=== PATIENT | female | born 1985 | race Caucasian/White ===

== ENCOUNTER 2019-03-08 15:13 | Inpatient (IN) | payer OTHER ==
[~2019-03-08] VITALS: Ht 157.5 cm; Wt 80.7 kg
[~2019-03-08 15:13] MED LIST: LIDOCAINE PF 1% 30ML(POUR BTL) INJ ONE; LIDOCAINE/EPI MPF 2%1:200000 10 ML VIAL INJ ONE; MINERAL OIL 30 ML UDC PO ONE
[2019-03-08 16:04] LABS: BASOPHILS % (AUTO) 0.4 % (0.0-2.0); EOSINOPHILS # (AUTO) 0.3 K/uL (0.0-0.4); EOSINOPHILS % (AUTO) 3.2 % (0.0-4.0); HEMATOCRIT 40.3 % (36-48); HEMOGLOBIN 13.8 g/dL (12.0-16.0); LYMPHOCYTES # (AUTO) 2.2 K/uL (1.0-5.5); LYMPHOCYTES % (AUTO) 22.3 % (20.5-51.5); MEAN CORPUSCULAR HEMOGLOBIN 30 pg (27-31); MEAN CORPUSCULAR HGB CONC 34 % (32-36); MEAN CORPUSCULAR VOLUME 87 fL (79.0-98.0); MONOCYTES # (AUTO) 0.6 K/uL (0.0-1.0); NEUTROPHILS # (AUTO) 6.8 K/uL (1.8-7.7); NEUTROPHILS % (AUTO) 68.1 % (40.0-70.0); PLATELET COUNT (AUTO) 213 K/uL (130-430); RED BLOOD CELL COUNT(AUTO) 4.61 MIL/uL (4.2-6.2); RED CELL DISTRIBUTION WIDTH 14.4 % (9.0-15.0); WHITE BLOOD COUNT (AUTO) 10.1 K/uL (4.8-10.8)
[2019-03-08] MEDS ORDERED: LR 1,000 ML IV ONE (16:07)
[2019-03-08] MEDS ORDERED: LR 1,000 ML IV SCH (16:07)
[2019-03-08] MEDS ORDERED: OXYTOCIN/0.9 % SODIUM CHLORIDE 1,000 ML IV SCH ×2 (16:07→22:07)
[2019-03-08] MEDS ORDERED: TERBUTALINE SULFATE 1 MG/ML VIAL SUBCUT ONE (16:15)
[2019-03-08] MEDS ORDERED: fentaNYL CITRATE/PF 100 MCG/2 ML AMP ONE (17:18)
[2019-03-08] MEDS ORDERED: ROPIVACAINE HCL/PF 0.2% 200 ML ONE (17:18)
[2019-03-08] MEDS ORDERED: LR 500 ML IV ONE (17:50)
[2019-03-08] MEDS ORDERED: FENT2mCg/mL-ROPIVA0.2%/NS EPID 200 ML EP SCH (18:00)
[2019-03-08] MEDS: NALBUPHINE HCL 10 MG/ML AMP IVP PRN ×2 (18:22→21:05)
[2019-03-08] MEDS ORDERED: TEMAZEPAM 15 MG CAPSULE PO PRN (21:00)
[2019-03-08] MEDS ORDERED: METHYLERGONOVINE MALEATE 0.2 MG/ML AMP ONE (22:06)
[2019-03-08] MEDS ORDERED: OXYTOCIN/0.9 % SODIUM CHLORIDE 1,000 ML IV ONE (22:07)
[2019-03-08] MEDS ORDERED: WITCH HAZEL LEAF 1 MED.PAD MED.PAD TP PRN (22:15)
[2019-03-08] MEDS ORDERED: HYDROcodone/ACETAMIN 5-325 MG TAB (NORCO/ VICODIN) PO PRN (22:15)
[2019-03-08] MEDS ORDERED: RHO(D) IMMUNE GLOBULIN/MALTOSE 1500 UNITS/1.3 ML (WINHRO) IM PRN (22:15)
[2019-03-08] MEDS ORDERED: LANOLIN 7 GM OINT. TP PRN (22:15)
[2019-03-08] MEDS ORDERED: OXYCODONE/ACETAMINOPHEN 5-325 TABLET PO PRN ×2 (22:15)
[2019-03-08] MEDS ORDERED: DIPH-TET-PERTUS Vaccine 0.5 ML VIAL (ADACEL) I.M. PRN (22:15)
[2019-03-08] MEDS ORDERED: HYDROCORTISONE 0.5%, 28.35 GM TOPICAL CREAM TP PRN (22:15)
[2019-03-08] MEDS ORDERED: DERMOPLAST SPRAY TP PRN (22:15)
[2019-03-08] MEDS ORDERED: ANUSOL 1 EA SUPP.RECT (PREPARATION H) RC PRN (22:15)
[2019-03-08] MEDS ORDERED: SENNOSIDES/DOCUSATE SODIUM 1 TAB TABLET(SENOKOT-S) PO PRN (22:15)
[2019-03-08] MEDS ORDERED: MEASLES,MUMPS&RUBELLA VACC/PF 12500 UNIT/0.5 ML VIAL SUBQ PRN (22:15)
[2019-03-08] MEDS ORDERED: DOCUSATE SODIUM 100 MG CAPSULE PO PRN (22:15)
[2019-03-09] MEDS: IBUPROFEN 600 MG TABLET PO SCH ×4 (02:31→21:49)
[2019-03-09 07:34] VITALS: BP_SYST 136
[2019-03-09 09:04] LABS: BASOPHILS # (AUTO) 0.1 K/uL (0.0-0.2); BASOPHILS % (AUTO) 0.5 % (0.0-2.0); EOSINOPHILS # (AUTO) 0.1 K/uL (0.0-0.4); EOSINOPHILS % (AUTO) 0.6 % (0.0-4.0); HEMATOCRIT 35.2 % (36-48); HEMOGLOBIN 11.8 g/dL (12.0-16.0); LYMPHOCYTES % (AUTO) 12.2 % (20.5-51.5); MEAN CORPUSCULAR HEMOGLOBIN 30 pg (27-31); MEAN CORPUSCULAR HGB CONC 34 % (32-36); MEAN CORPUSCULAR VOLUME 89 fL (79.0-98.0); MONOCYTES # (AUTO) 0.8 K/uL (0.0-1.0); MONOCYTES % (AUTO) 4.7 % (1.7-9.3); NEUTROPHILS # (AUTO) 13.7 K/uL (1.8-7.7); PLATELET COUNT (AUTO) 185 K/uL (130-430); RED BLOOD CELL COUNT(AUTO) 3.97 MIL/uL (4.2-6.2); RED CELL DISTRIBUTION WIDTH 14.7 % (9.0-15.0); WHITE BLOOD COUNT (AUTO) 16.7 K/uL (4.8-10.8)
[2019-03-10] MEDS: IBUPROFEN 600 MG TABLET PO SCH ×2 (02:23→08:15)
== END 2019-03-10 12:20 | disposition home or self-care (01) | DRG 806 ==
LOC: SPU 15:13
PROVIDERS: ADMIT Specialist; ATTEND Specialist
PROC: 10E0XZZ Delivery of Products of Conception, External Approach (ICD-10-PCS; principal; 2019-03-08)
PROC: 3E0R3BZ Introduction of Anesthetic Agent into Spinal Canal, Percutaneous Approach (ICD-10-PCS; 2019-03-08)
PROC: 00HU33Z Insertion of Infusion Device into Spinal Canal, Percutaneous Approach (ICD-10-PCS; 2019-03-08)
PROC: 3E033VJ Introduction of Other Hormone into Peripheral Vein, Percutaneous Approach (ICD-10-PCS; 2019-03-08)
DX: O69.81X0 Labor and delivery complicated by cord around neck, without compression, not applicable or unspecified (principal); D62 Acute posthemorrhagic anemia; Z37.0 Single live birth; Z3A.40 40 weeks gestation of pregnancy; Z88.2 Allergy status to sulfonamides
CPT/HCPCS: 36415; 81002-TC; 82962; 85025; 86592; 86886; 86900; 86901; 94760; J2001; J2210; J2300; J2590; J3010